=== PATIENT | female | born 1950 | race Caucasian/White ===

== ENCOUNTER 2017-01-11 14:33 | Emergency (ER) | payer MEDICARE, BC ==
[~2017-01-11] VITALS: Ht 167.6 cm; Wt 77.2 kg
[2017-01-11 14:35] VITALS: BP 189/79; PULSE 66; RESP 20; TEMP 97.6; O2SAT 95
[2017-01-11] MEDS ORDERED: CHLO25TA2 PO (15:07)
[2017-01-11] MEDS ORDERED: ASPIRIN 81 MG CHEW TAB PO ONE (15:15)
[2017-01-11] MEDS ORDERED: SODIUM CHLORIDE 0.9% FLUSH 10 ML FLUSH IVF PRN (15:15)
[2017-01-11] MEDS ORDERED: SODIUM CHLORID 0.9% 500 ML INJ 500 ML IV ONE ×2 (15:15)
--- NOTE | 2017-01-11 15:32 | RADRPT ---
EXAM DATE/TIME: 01/11/2017 15:07 [place] COMPARISON: No previous studies available for comparison. INDICATIONS : Chest pressure and light headed. MEDICAL HISTORY : None. SURGICAL HISTORY : None. ENCOUNTER: Initial ACUITY: 1 day PAIN SCORE: 0/10 LOCATION: Bilateral chest FINDINGS: A single view of the chest demonstrates the lungs to be symmetrically hyper aerated without evidence of mass, infiltrate or effusion. The cardiomediastinal contours are unremarkable. Osseous structure s are intact. CONCLUSION: No acute disease. COPD. Yayo Esparza MD on January 11, 2017 at 15:30 Board Certified Radiologist. This report was verified electronically.
[2017-01-11 15:42] LABS: AUTOMATED NEUTROPHIL # 6.4 TH/MM3 (1.8-7.7); BASOPHIL % 0.5 % (0.0-2.0); EOSINOPHIL # 0.1 TH/MM3 (0-0.4); EOSINOPHIL % 1.4 % (0.0-4.0); HEMO FLAGS DIFF FINAL; LYMPH % 17.8 % (9.0-44.0); LYMPHOCYTE # 1.6 TH/MM3 (1.0-4.8); MEAN CELL VOLUME 86.6 FL (80.0-100.0); MEAN CORPUSCULAR HEMOGLOBIN 28.6 PG (27.0-34.0); MEAN CORPUSCULAR HGB CONC 33.1 % (32.0-36.0); MONO % 7.2 % (0.0-8.0); NEUT % 73.1 % (16.0-70.0); PLATELET COUNT 218 TH/MM3 (150-450); RED BLOOD COUNT 4.96 MIL/MM3 (4.00-5.30); RED CELL DISTRIBUTION WIDTH 14.1 % (11.6-17.2); WHITE BLOOD COUNT 8.7 TH/MM3 (4.0-11.0)
--- NOTE | 2017-01-11 15:58 | PD ---
HPI Chief Complaint: Cardiac Complaint Time Seen by Provider: 14:41 Travel History International Travel<30 days: No Contact w/Intl Traveler<30days: No Traveled to known affect area: No History of Present Illness HPI To 66 year-old woman who presents to the emergency room complaining of chest pressure, shortness of breath, nausea vomiting, dizziness and vomiting. She reports that she's had constant chest pressure for the past 3-4 years, steady in intensity. Over the past year or so, she's had several of her symptoms are intermittent nausea vomiting dizziness and shortness of breath. Starting last night she started getting increasing dizziness, vomiting. She had associated shortness of breath with it. She's had multiple associated symptoms including some tingling in both forearms, some hip pain and flank pain on the right side, as well as some dysuria polyuria. She's talked to her doctor about these symptoms in the past, and has had an EKG done, but no further evaluation. History Past Medical History Narrative Medical Hypertension on hyperlipidemia Shingles Anxiety GERD Tetanus Vaccination: > 5 Years Influenza Vaccination: Yes Past Surgical History Surgical History: No Previous Surgery Social History Alcohol Use: No Tobacco Use: No Allergies-Medications (Allergen,Severity, Reaction): Coded Allergies: Valtrex (Verified Allergy, Severe, Swelling, 01/11/17) FACIAL SWELLING Reported Meds & Prescriptions Reported Meds & Active Scripts Active Reported Chlorthalidone 25 Mg Tab 25 Mg PO DAILY Review of Systems Except as stated in HPI: all other systems reviewed are Neg Physical Exam Narrative GENERAL: Well-appearing 66 year-old woman, no acute distress. SKIN: Focused skin assessment warm/dry. HEAD: Atraumatic. Normocephalic. CARDIOVASCULAR: Regular rate and rhythm. No murmur appreciated. RESPIRATORY: No accessory muscle use. Clear to auscultation. Breath sounds equal bilaterally. GASTROINTESTINAL: Abdomen soft, non-tender, nondistended. Hepatic and splenic margins not palpable. MUSCULOSKELETAL: No obvious deformities. No edema. NEUROLOGICAL: Awake and alert. No obvious cranial nerve deficits. Motor grossly within normal limits. Normal speech. PSYCHIATRIC: Appropriate mood and affect; insight and judgment normal. Data Data Last Documented VS Vital Signs Date Time Temp Pulse Resp B/P Pulse Ox O2 Delivery O2 Flow Rate FiO2 01/11/17 16:04 57 16 162/70 97 Room Air 01/11/17 14:35 97.6 Orders Electrocardiogram (01/11/17 15:04) Complete Blood Count With Diff (01/11/17 15:04) Comprehensive Metabolic Panel (01/11/17 15:04) Magnesium (Mg) (01/11/17 15:04) Prothrombin Time / Inr (Pt) (01/11/17 15:04) Act Partial Throm Time (Ptt) (01/11/17 15:04) Troponin I (01/11/17 15:04) Lipase (01/11/17 15:04) Chest, Single Ap (01/11/17 15:04) Ecg Monitoring (01/11/17 15:04) Iv Access Insert/Monitor (01/11/17 15:04) Oximetry (01/11/17:) Oxygen Administration (01/11/17 15:04) Aspirin Chew (Aspirin Chew) (01/11/17 15:15) Sodium Chloride 0.9% Flush (Ns Flush) (01/11/17 15:15) Sodium Chlorid 0.9% 500 Ml Inj (Ns 500 M (01/11/17 15:15) Sodium Chlorid 0.9% 500 Ml Inj (Ns 500 M (01/11/17 15:15) Urinalysis - C+S If Indicated (01/11/17 15:20) Labs Laboratory Tests Test 01/11/17 01/11/17 15:18 15:23 White Blood Count 8.7 TH/MM3 Red Blood Count 4.96 MIL/MM3 Hemoglobin 14.2 GM/DL Hematocrit 43.0 % Mean Corpuscular Volume 86.6 FL Mean Corpuscular Hemoglobin 28.6 PG Mean Corpuscular Hemoglobin 33.1 % Concent Red Cell Distribution Width 14.1 % Platelet Count 218 TH/MM3 Mean Platelet Volume 8.6 FL Neutrophils (%) (Auto) 73.1 % Lymphocytes (%) (Auto) 17.8 % Monocytes (%) (Auto) 7.2 % Eosinophils (%) (Auto) 1.4 % Basophils (%) (Auto) 0.5 % Neutrophils # (Auto) 6.4 TH/MM3 Lymphocytes # (Auto) 1.6 TH/MM3 Monocytes # (Auto) 0.6 TH/MM3 Eosinophils # (Auto) 0.1 TH/MM3 Basophils # (Auto) 0.0 TH/MM3 CBC Comment DIFF FINAL Differential Comment Prothrombin Time 10.8 SEC Prothromb Time International 1.0 RATIO Ratio Activated Partial 23.9 SEC Thromboplast Time Sodium Level 138 MEQ/L Potassium Level 3.8 MEQ/L Chloride Level 100 MEQ/L Carbon Dioxide Level 29.3 MEQ/L Anion Gap 9 MEQ/L Blood Urea Nitrogen 17 MG/DL Creatinine 0.68 MG/DL Estimat Glomerular Filtration 86 ML/MIN Rate Random Glucose 93 MG/DL Calcium Level 8.7 MG/DL Magnesium Level 2.0 MG/DL Total Bilirubin 0.6 MG/DL Aspartate Amino Transf 32 U/L (AST/SGOT) Alanine Aminotransferase 25 U/L (ALT/SGPT) Alkaline Phosphatase 100 U/L Troponin I LESS THAN 0.02 NG/ML Total Protein 7.8 GM/DL Albumin 3.7 GM/DL Lipase 273 U/L Urine Color YELLOW Urine Turbidity HAZY Urine pH 7.5 Urine Specific [place] 1.024 Urine Protein TRACE mg/dL Urine Glucose (UA) NEG mg/dL Urine Ketones NEG mg/dL Urine Occult Blood NEG Urine Nitrite NEG Urine Bilirubin NEG Urine Urobilinogen LESS THAN 2.0 MG/DL Urine Leukocyte Esterase NEG Urine RBC 5 /hpf Urine WBC LESS THAN 1 /hpf Urine Mucus FEW /lpf Microscopic Urinalysis Comment CULT NOT INDICATED MDM Medical Decision Making Medical Screen Exam Complete: Yes Emergency Medical Condition: Yes Interpretation(s) My review of EKG: Sinus bradycardia rate of 58, normal axis, normal intervals, no acute ischemia. LABS: CBC unremarkable. CMP unremarkable. Troponin negative. Lipase normal. Coags unremarkable. UA negative. Chest x-ray: No acute disease. COPD. Differential Diagnosis Angina, ACS, UTI, anxiety, other Narrative Course Medical decision making INITIAL: This is a 66 year-old woman presents emergency Department with chest pressure for years, with intermittent acute episodes of shortness of breath with dizziness. She had a similar episode starting this morning. She is some vomiting with it. She looks overall well. Seems like her daughter, who encouraged her to come in today. We'll check labs, x-ray, urine, reassess. FINAL: Patient was several years worth of chest tightness, steady, without exacerbation with exertion. She looks well. Initial studies are unremarkable. I think she can follow up with a primary care doctor in the [place] and return to the emergency department for any new or worsening symptoms. Diagnosis Primary Impression: Chest pain Additional Impression: Nausea & vomiting Additional Instructions: Use Zofran if he needed for any nausea or vomiting. Follow-up with her primary doctor in [facility] for further evaluation. Return to the emergency department for any new or worsening symptoms. Med/Other Pt SpecificInfo: No Change to Meds Scripts Ondansetron Odt (Zofran Odt)4 Mg Tab4 Mg SL Q8HR PRN (Nausea/Vomiting) #15 TAB May substitute non-ODT form. Prov:Epifanio Lazaro MD 01/11/17 Disposition: DISCHARGE HOME Condition: Stable Epifanio Lazaro MD Jan 11, 2017 15:58
[2017-01-11 15:59] LABS: BLOOD, URINE NEG (NEG); COMMENT (UR) CULT NOT INDICATED; CULTURE IF INDICATED CULT NOT INDICATED; GLUCOSE,URINE NEG (NEG); KETONE, URINE NEG (NEG); MUCUS URINE FEW /lpf (OCC); NITRITE,URINE NEG (NEG); PH, URINE 7.5 (5.0-8.5); URINE COLOR YELLOW (YELLW/STRAW)
[2017-01-11 16:00] LABS: APTT (PATIENT) 23.9 SEC (24.3-30.1); PROTHROMBIN TIME - PATIENT 10.8 SEC (9.8-11.6)
[2017-01-11 16:04] VITALS: BP 162/70; PULSE 57; RESP 16; O2SAT 97
[2017-01-11 16:08] LABS: ALKALINE PHOSPHATASE 100 U/L (45-117); TOTAL BILIRUBIN ADULT 0.6 MG/DL (0.2-1.0)
[2017-01-11 16:12] LABS: ALT (GPT) 25 U/L (10-53); ANION GAP 9 MEQ/L (5-15); AST (GOT) 32 U/L (15-37); BICARBONATE 29.3 MEQ/L (21.0-32.0); BLOOD UREA NITROGEN 17 MG/DL (7-18); CHLORIDE 100 MEQ/L (98-107); GLOMERULAR FILTRATION RATE 86 ML/MIN (>89); SODIUM (NA) 138 MEQ/L (136-145)
[2017-01-11 16:19] LABS: POTASSIUM 3.8 MEQ/L (3.5-5.1)
[2017-01-11] MEDS ORDERED: ZOFR4TAB3 SL (16:45)
--- NOTE | 2017-01-12 16:21 | EKG ---
Date Performed: 01/11/2017 Time Performed: 14:52:47 PTAGE: 66 years EKG: SINUS BRADYCARDIA POSSIBLE LEFT ATRIAL ENLARGEMENT INCOMPLETE RIGHT BUNDLE BRANCH BLOCK BOR DERLINE ECG NO PREVIOUS TRACING DOCTOR: Edgar Germain Interpretating Date/Time 01/12/2017 16:19:48
== END 2017-01-11 17:02 | disposition home or self-care (01) ==
LOC: NEPE 14:33
DX: R07.89 Other chest pain (principal); R11.2 Nausea with vomiting, unspecified; R42 Dizziness and giddiness; R06.02 Shortness of breath
CPT/HCPCS: 71010; 80053; 81001; 83690; 83735; 84484; 85025; 85610; 85730; 93005; 96360; 99285; J7040